=== PATIENT | female | born 2000 | race Caucasian/White ===

== ENCOUNTER 2022-07-25 10:33 | Outpatient (CLI) | payer OTHER, SELFPAY ==
[2022-07-25 14:19] LABS: Albumin* 3.8 g/dL (3.3-5.0); Chloride* 108 mmol/L (96-114); Sodium* 139 mmol/L (135-149)
[2022-07-25 14:21] LABS: Carbon Dioxide* 28 mmol/L (20-32); Creatinine* 0.9 mg/dL (0.5-1.5); Estimated Glomerular Filt Rate 93 ml/min
[2022-07-25 14:22] LABS: Alanine Aminotransferase* 21 U/L (4-35); Alkaline Phosphatase* 56 U/L (40-150); Aspartate Amino Transferase* 25 U/L (12-35); Blood Urea Nitrogen* 11 mg/dL (5-24); Calcium* 9.1 mg/dL (8.4-10.6); Glucose* 91 mg/dL (60-115); Lipase* 66 U/L (23-300); Total Protein* 6.5 g/dL (6.0-8.3)
[2022-07-25 15:42] LABS: Chlamydia DNA Amplified* Not Detected (No Detected)
[2022-07-25 15:43] LABS: GC DNA Amplified* Not Detected (No Detected)
== END 2022-07-25 10:34 | disposition home or self-care (01) ==
PROVIDERS: PCP Physician Assistant Medical; Visit Provider Family Medicine
DX: R10.2 Pelvic and perineal pain (principal); R10.9 Unspecified abdominal pain; R30.0 Dysuria
CPT/HCPCS: 80053; 83690; 87491; 87591

== ENCOUNTER 2023-01-04 15:55 | Outpatient (CLI) | payer OTHER, SELFPAY | END 2023-01-04 15:56 | disposition home or self-care (01) | PROVIDERS: PCP Physician Assistant Medical; Referring Provider Physician Assistant Medical; Visit Provider Family Medicine | DX: Z00.00 Encounter for general adult medical examination without abnormal findings (principal); Z13.6 Encounter for screening for cardiovascular disorders; Z13.1 Encounter for screening for diabetes mellitus | CPT/HCPCS: 80061; 82947 ==

== ENCOUNTER 2023-01-06 07:41 | Outpatient (CLI) | payer OTHER, SELFPAY | END 2023-01-06 07:42 | disposition home or self-care (01) | PROVIDERS: PCP Physician Assistant Medical; Visit Provider Family Medicine | DX: Z00.00 Encounter for general adult medical examination without abnormal findings (principal); R53.83 Other fatigue; Z01.84 Encounter for antibody response examination | CPT/HCPCS: 86706; 86735; 86762; 86765; 86787 ==

== ENCOUNTER 2023-07-27 09:46 | Outpatient (CLI) | payer OTHER, SELFPAY ==
--- OUTSIDE RECORDS SUMMARY | 2023-07-27 09:50 | XMS_ITS | Encounter Summary ---
Author Name Unknown Organization [facility] Address [address] [place] [address]. [place] [address] Care Team Providers Care Ruby On Rails Engineer Name Role Phone Martha Ansari Primary Care Provider [phone] Roderick Trimble MD Unavailable Encounter Details Date Type Department Care Team (Late st Contact Info) Description 10/22/2020 Documentation Only INTERFACED REPORT Unknown, Provider Social History Tobacco Use Types Packs/Day Years Used Date Smoking Tobacco: Never Smokeless Tobacco: Never Comments:non smoking Alcohol Use Standard Drinks/Week Comments No 0 (1 standard drink = 0.6 oz pur e alcohol) Sex and Gender Information Value Date Recorded Sex Assigned at Female 09/12/2020 12:44 PM CDT Gender Identity Female 09/12/2020 12:44 PM CDT Sexual Orientation Straight 09/12/2020 12 :44 PM CDT documented as of this encounter Plan of Treatment Not on file documented as of this encounter Visit Diagnoses Not on filedocumented in this encounter Care Teams Ruby On Rails Engineer Relationship Specialty Start Date End Date Martha Ansari [facility] [address] [place] [address] PCP - General Nurse Practitioner 12/29/17 [place] [address] [place] [address] Assigned PCP 11/26/17 12/21/20 documented as of this encounter
--- OUTSIDE RECORDS SUMMARY | 2023-07-27 09:50 | XMS_ITS | Referral Summary ---
Author Name Unknown Organization [facility] Address [address] [place] [address] Care Team Providers Care Cad Developer Name Role Phone Martha Ansari Primary Care Provider [phone] Allergies Active Allergy Reactions Criticality Noted Date Comments No Known Allergies 08/30/2002 Medications Medication Sig Dispensed Refills Start Date End Date Status azithromycin (ZITHROMAX) 500 MG tabletIndications:Suellen rojas advice encounter Take 1 tablet (500 mg) by mouth daily 3 tablet 0 12/15/2017 Active Additional Information Patient not taking.Reported on 12/29/2017 Immunizations Name Administration Dates Next Due COVID-19 Monovalent 18+ (Moderna) 10/21/2020,10/2020 Comvax (HIB/HepB) 02/28/2002,03/24/2001,01/20/20 01 DTAP (<7y) 12/09/2011, 2,05/31/2001, 1,01/19/2001 HEPATITIS A (PEDS 12M-18Y) 02/01/2015,02/03/2013 HPV9 02/19/2016,04/15/2015,02/01/2015 HepB, Unspecified 02/28/2002,03/24/2001,01/20/20 01 Hib, Unspecified 02/28/2002,03/24/2001, 1 Influenza (IIV3) PF 05/28/2003,06/30/2002,2001 MMR 11/10/2005,11/29/2001 Meningococcal ACWY (Menactra??) 02/03/2013 Pneumococcal (PCV 7) 11/29/2001,03/24/2001,01/19 Pneumococcal, Unspecified 11/29/2001,03/24/2001, 01/19/2001 Polio, Unspecified 11/10/2005, 1,03/24/2001, 1 Poliovirus, inactivated (IPV) 05/31/2001, 001,01/19/2001 Td (Adult), Adsorbed 12/09/2011 Typhoid IM 12/15/2017 Varicella 01/31/2008,02/28/2002 Social History Tobacco Use Types Packs/Day Years Used Date Smoking Tobacco: Never Smokeless Tobacco: Never Comments:non smoking Alcohol Use Standard Drinks/Week Comments No 0 (1 standard drink = 0.6 oz pur e alcohol) Adolescent Education Answer Date Record ed Getting School Help Needed Not on file 04/06 Sex and Gender Information Value Date Recorded Sex Assigned at Female 09/12/2020 12:44 PM CDT Gender Identity Female 09/12/2020 12:44 PM CDT Sexual Orientation Straight 09/12/2020 12 :44 PM CDT Last Filed Vital Signs Vital Sign Reading Time Taken Comments Blood Pressure 103/68 12/29/2017 8:38 PM CDT Pulse 71 12/29/2017 8:38 PM CDT Temperature 36.9 ??C (98.4 ??F) 12/29/2017 8:38 PM CD T Respiratory Rate 16 12/15/2017 11:25 AM CDT Oxygen Saturation 97% 12/29/2017 8:38 PM CDT Inhaled Oxygen Concentration - - Weight 68.5 kg (151 lb) 12/29/2017 8:38 PM CDT Height 171.5 cm (5' 7.5) 12/15/2017 11:25 AM CD T Body Mass Index 23.3 12/15/2017 11:25 AM CDT Plan of Treatment Not on file Care Teams Cad Developer Relationship Specialty Start Date End Date Martha Ansari [facility] [address] [place], [place] [id number] PCP - General Nurse Practitioner 12/29/17
--- OUTSIDE RECORDS SUMMARY | 2023-07-27 09:50 | XMS_ITS | Clinical Summary ---
Author Name Unknown Organization [facility] Address [address] [place] [address] Care Team Providers Care Instrumentation Supervisor Name Role Phone Martha Ansari Primary Care Provider [phone] Allergies Active Allergy Reactions Criticality Noted Date [...] 12/15/2017 11:25 AM CDT Plan of Treatment Health Maintenance Due Date Last Done Comments ADVANCE CARE PLANNING 2000 ANNUAL REVIEW OF HM ORDERS 2000 YEARLY PREVENTIVE VISIT 01/15/2005 01/16/2004, 11/23 HIV SCREENING 11/21/2015 HEPATITIS C SCREENING 2018 PAP 2021 DTAP/TDAP/TD IMMUNIZATION (7 - Tdap) 12/08/2021 12/09/2011, 12/09/2011, 05/22/2002, Additional history exists COVID-19 Vaccine (3 - 2022- season) 2023 10/21/2020, 09/23/2020 INFLUENZA VACCINE (#1) 2023 , 04/04/2019, 05/28/2003, Additional history exists PHQ-2 (once per calendar year) 2023 Pneumococcal Vaccine: Pediatrics (0 to 5 Years) and At-Risk Patients (6 to 64 Years) Completed 11/29/2001, 11/29/2001, 03/24/2001, Additional history exists HEPATITIS B IMMUNIZATION Completed 002, 02/28/2002, 03/24/2001, Additional history exists IPV IMMUNIZATION Completed 11/10/2005, 04/2001, 05/31/2001, Additional history exists HPV IMMUNIZATION Completed 02/19/2016, , 02/01/2015 MENINGITIS IMMUNIZATION Completed 02/15/2019, 02/03 RSV MONOCLONAL ANTIBODY Aged Out No l onger eligible based on patient's age to complete this topic Care Teams Instrumentation Supervisor Relationship Specialty Start Date End Date Martha Ansari [facility] [address] [place] [address] PCP - General Nurse Practitioner 7/11/18
--- OUTSIDE RECORDS SUMMARY | 2023-07-27 09:50 | XMS_ITS | Encounter Summary ---
Author Name Unknown Organization [facility] Address [address] [place] [address]. [place] [address] Care Team Providers Care Panel Assembler Name Role Phone Martha Ansari Primary Care Provider [phone] Roderick Trimble MD Unavailable Encounter Details Date Type Department Care Team (Late st Contact Info) Description 09/24/2020 Documentation Only INTERFACED REPORT Unknown, Provider Social [...] on filedocumented in this encounter Care Teams Panel Assembler Relationship Specialty Start Date End Date Martha Ansari [facility] [address] [place] [address] PCP - General Nurse Practitioner 12/29/17 [place] [address] [place] [address] Assigned PCP 11/26/17 12/21/20 documented as of this encounter
[2023-07-27 19:26] LABS: Chlamydia DNA Amplified* Not Detected (No Detected); GC DNA Amplified* Not Detected (No Detected)
== END 2023-07-27 09:47 | disposition home or self-care (01) ==
LOC: NFLDREF 09:48
PROVIDERS: PCP Physician Assistant Medical; Visit Provider Physician Assistant
DX: Z11.3 Encounter for screening for infections with a predominantly sexual mode of transmission (principal)
CPT/HCPCS: 87491; 87591

== ENCOUNTER 2024-11-29 08:58 | Outpatient (CLI) | payer OTHER, SELFPAY | END 2024-11-29 08:59 | disposition home or self-care (01) | PROVIDERS: PCP Family Medicine; Visit Provider Internal Medicine | DX: Z00.00 Encounter for general adult medical examination without abnormal findings (principal); Z13.228 Encounter for screening for other metabolic disorders; Z13.6 Encounter for screening for cardiovascular disorders; Z11.1 Encounter for screening for respiratory tuberculosis | CPT/HCPCS: 80053; 80061; 86480 ==